=== PATIENT | female | born 1950 | race Caucasian/White ===

== ENCOUNTER 2016-10-24 16:10 | Inpatient (IN) | payer MEDICARE ==
[~2016-10-24] VITALS: Ht 167.6 cm; Wt 91.2 kg
[2016-11-04] MEDS ORDERED: ceFAZolin 2 GM PREMIX 50 ML IV SCH (06:15)
[2016-11-04] MEDS ORDERED: METOPROLOL TARTRATE 25 MG TAB PO PRN (06:15)
[2016-11-04] MEDS ORDERED: SODIUM CHLORID 0.9% 500 ML IV PRN (06:15)
[2016-11-04] MEDS ORDERED: CHLORHEXIDINE GLUCONATE 2 % 1 PACK (2 CLOTHS) TOPICAL PRN (06:15)
[2016-11-04] MEDS ORDERED: INSULIN HUMAN REGULAR 1,000 UNITS/10 ML VIAL SQ PRN (06:15)
[2016-11-04] MEDS ORDERED: LACTATED RINGER'S 1000 ML IV PRN (06:15)
[2016-11-04] MEDS ORDERED: POVIDONE IODINE 5% (ANTISEPSIS KIT) 4 APPLICATIONS EACH NARE PRN (06:15)
[2016-11-04 06:28] VITALS: BP_SYST 133; BP_SYST 151; BP_DIAS 70; BP_DIAS 78; PULSE 69; RESP 18; TEMP 97.8; O2SAT 98
[2016-11-04 06:58] LABS: INTERNATIONAL NORMALIZED RATIO 1.1 RATIO; PROTHROMBIN TIME - PATIENT 11.9 SEC (9.8-11.6)
[2016-11-04] MEDS ORDERED: SUGAMMADEX SODIUM 200 MG/2 ML VIAL IV PUSH ONE ×2 (07:21)
[2016-11-04] MEDS ORDERED: DEXAMETHASONE SOD PHOS 4 MG/ML VIAL ONE (07:37)
[2016-11-04] MEDS ORDERED: MIDAZOLAM HCL 2 MG/2 ML VIAL ONE (07:37)
[2016-11-04] MEDS ORDERED: NORMOSOL R INJ 2,000 ML IV ONE (12:00)
[2016-11-04] MEDS ORDERED: ePHEDrine/NS 25 MG/5 ML SYR IV ONE (12:00)
[2016-11-04] MEDS ORDERED: ONDANSETRON HCL 4 MG/2 ML VIAL IV PUSH ONE (12:00)
[2016-11-04] MEDS ORDERED: PHENYLEPHRINE HCL 10 MG/ML VIAL IV ONE (12:00)
[2016-11-04] MEDS ORDERED: IOHEXOL 350 MG/ML 50 ML BTL (for RAD DIAG) OTHER ONE (12:00)
[2016-11-04] MEDS ORDERED: PROPOFOL 200 MG/20 ML AMP IV ONE (12:00)
[2016-11-04] MEDS ORDERED: fentaNYL CITRATE 250 MCG/5 ML AMP ONE (12:08)
[2016-11-04] MEDS: SODIUM CHLOR 0.9% 1000 ML INJ 1,000 ML IV SCH ×2 (12:15→22:21)
[2016-11-04] MEDS ORDERED: DO NOT ADM ANY ANTICOAGULANT DRUGS PRN (12:47)
[2016-11-04] MEDS: ACETAMINOPHEN 1000 MG/100 ML VIAL IV SCH ×2 (13:16→22:16)
[2016-11-04 13:17] LABS: AUTOMATED NEUTROPHIL # 8.9 TH/MM3 (1.8-7.7); BASOPHIL % 0.2 % (0.0-2.0); HEMATOCRIT 40.7 % (35.0-46.0); HEMO FLAGS DIFF FINAL; LYMPH % 5.4 % (9.0-44.0); LYMPHOCYTE # 0.5 TH/MM3 (1.0-4.8); MEAN CORPUSCULAR HEMOGLOBIN 32.1 PG (27.0-34.0); MEAN CORPUSCULAR HGB CONC 33.8 % (32.0-36.0); NEUT % 93.4 % (16.0-70.0); PLATELET COUNT 197 TH/MM3 (150-450); RED BLOOD COUNT 4.28 MIL/MM3 (4.00-5.30); RED CELL DISTRIBUTION WIDTH 12.9 % (11.6-17.2); WHITE BLOOD COUNT 9.5 TH/MM3 (4.0-11.0)
[2016-11-04 13:42] LABS: BICARBONATE 21.8 MEQ/L (21.0-32.0)
[2016-11-04 13:56] LABS: CALCIUM-PROTEIN CORRECTED 7.6 MG/DL (8.5-10.1)
[2016-11-04] MEDS: PANTOPRAZOLE SODIUM 40 MG VIAL IV PUSH SCH (15:00)
[2016-11-04] MEDS ORDERED: *ONDANSETRON 4 MG VIAL PERIprocedural Use ONLY ONE (15:10)
--- NOTE | 2016-11-04 17:43 | RADRPT ---
EXAM DATE/TIME: 11/04/2016 08:52 [place] COMPARISON: No previous studies available for comparison. INDICATIONS : Stent placement right side done in or MEDICAL HISTORY : None. SURGICAL HISTORY : None. ENCOUNTER: Initial ACUITY: 1 day PAIN SCORE: Non-responsive. LOCATION: Right Abdomen. FINDINGS: A single digital image was recorded digitally operating room using C-arm after instillation of contra st into a dilated collecting system of the right kidney via stent. CONCLUSION: Intraoperative image. Hayder Berrios MD on November 04, 2016 at 17:41 Board Certified Radiologist. This report was verified electronically.
[2016-11-04] MEDS ORDERED: POTASSIUM CHLORIDE 20 MEQ CONTROLLED RELEASE TAB PO ONE (18:00)
[2016-11-05] VITALS (8 sets, daily range): BP systolic 104–170; BP diastolic 52–70; PULSE 74–95; RESP 16–20; TEMP 96.1–98.4; O2SAT 92–95
[2016-11-05] MEDS: ACETAMINOPHEN 1000 MG/100 ML VIAL IV SCH ×4 (02:39→19:56)
[2016-11-05] MEDS: SODIUM CHLOR 0.9% 1000 ML INJ 1,000 ML IV SCH ×2 (08:15→18:15)
[2016-11-05 08:35] LABS: POTASSIUM 3.6 MEQ/L (3.5-5.1)
[2016-11-05] MEDS: KETOROLAC TROMETHAMINE 30 MG/ML (IVP) VIAL IV PUSH PRN (08:36)
--- NOTE | 2016-11-05 13:04 | HHI.PR ---
Subjective Patient symptoms today vomited x 2 this morning. Denies pain. Denies flatus. Denies fevers. Has bladder spasms. Objective Vital Signs Vital Signs Date Time Temp Pulse Resp B/P Pulse Ox O2 Delivery O2 Flow Rate FiO2 11/05/16 08:06 94 21 11/05/16 08:00 97.6 76 20 135/64 94 11/05/16 04:05 98.1 80 16 110/57 95 11/05/16 00:05 98.4 95 16 104/52 95 11/04/16 21:10 98.1 93 20 116/64 95 Nasal Cannula 2 11/04/16 21:00 93 20 116/64 95 Nasal Cannula 2 11/04/16 20:00 95 16 123/65 96 Nasal Cannula 2 11/04/16 19:00 96 16 126/66 96 Nasal Cannula 2 11/04/16 18:00 96 16 114/66 95 Nasal Cannula 2 11/04/16 17:00 100 16 125/67 96 Nasal Cannula 2 11/04/16 16:00 98 16 148/80 98 Nasal Cannula 2 11/04/16 15:00 95 16 143/69 96 Nasal Cannula 2 11/04/16 14:00 93 16 120/63 93 Nasal Cannula 2 11/04/16 13:30 92 16 119/60 94 Nasal Cannula 2 11/04/16 13:15 97 16 136/70 93 Nasal Cannula 2 Intake & Output 11/05/16 11/05/16 07:00 19:00 Intake Total 325 ml Output Total 330 ml Balance -5 ml Intake Oral 120 ml IV Total 205 ml Output Urine Total 330 ml # Voids 0 # Bowel Movements 0 Result Diagram: 11/04/16 1301 11/05/16 0721 Objective Remarks NAD. a/O x 3 RRR CTAB abd soft, appropriately tender to palpation, ND. inc c/d/i. No pertioneal signs. Abrue pink but clear Ext NT. no c/c/e Medications and IVs Current Medications Medications (Trade) Dose Ordered Sig/Arleen Route Start Time Stop Time Status Last Admin (NS 1000 ml Inj) 1,000 ml @ 100 mls/hr Q10H IV 11/04/16 12:15 11/05/16 08:15 (Roxicodone) 5 mg Q4H PRN PO 11/04/16 12:15 (Roxicodone) 10 mg Q6H PRN PO 11/04/16 12:15 Acetaminophen 1000 mg 1,000 mg Q6H IV 11/04/16 14:00 11/05/16 08:35 (Ancef Inj/NS Inj) 100 ml @ 200 mls/hr Q8H IV 11/04/16 16:00 11/05/16 08:36 (Zofran Inj) 4 mg Q6HR PRN IV PUSH 11/04/16 12:15 (Protonix Inj) 40 mg Q24H IV PUSH 11/04/16 15:00 11/04/16 15:00 (Toradol Inj) 15 mg Q6H PRN IV PUSH 11/04/16 12:15 11/09/16 12:14 11/05/16 08:36 Assessment and Plan Assessment and Plan POD #1 s/p cystoscopy, right ureteral stent insertion, pyelolithotomy, robotic pyeloplasty -Clear liquid diet -Hgb stable. -d/c ancef. Nicotine patch. -Ambulate -GI/DVT prophylaxis -check JAMIL Creatinine -D/C Kevon Dickerson A.M., MD Nov 05, 2016 13:04
[2016-11-05] MEDS ORDERED: COLA100C3 PO (13:05)
[2016-11-05] MEDS ORDERED: PERC5TAB12 PO (13:05)
[2016-11-05] MEDS: PANTOPRAZOLE SODIUM 40 MG VIAL IV PUSH SCH (15:37)
[2016-11-05] MEDS: DOCUSATE SODIUM 100 MG CAP PO SCH ×2 (15:37→21:00)
[2016-11-05] MEDS: NICOTINE 21 MG/24 HR PATCH T-DERMAL SCH (15:37)
[2016-11-05] MEDS: ONDANSETRON HCL 4 MG/2 ML VIAL IV PUSH PRN (19:48)
[2016-11-05] MEDS: REMOVE OLD PATCH T-DERMAL SCH (19:58)
[2016-11-06 00:20] VITALS: BP 129/68; PULSE 78; RESP 16; TEMP 97.7; O2SAT 93
[2016-11-06] MEDS: ACETAMINOPHEN 1000 MG/100 ML VIAL IV SCH ×4 (03:48→21:39)
[2016-11-06] MEDS: SODIUM CHLOR 0.9% 1000 ML INJ 1,000 ML IV SCH ×2 (03:49→14:15)
[2016-11-06 04:20] VITALS: BP 134/62; PULSE 78; RESP 16; TEMP 96.8; O2SAT 94
[2016-11-06 08:00] VITALS: BP 152/75; PULSE 75; RESP 20; TEMP 97.1; O2SAT 92
[2016-11-06] MEDS: KETOROLAC TROMETHAMINE 30 MG/ML (IVP) VIAL IV PUSH PRN (09:01)
[2016-11-06] MEDS: DOCUSATE SODIUM 100 MG CAP PO SCH ×2 (09:01→21:38)
[2016-11-06] MEDS: ONDANSETRON HCL 4 MG/2 ML VIAL IV PUSH PRN (09:01)
[2016-11-06] MEDS: NICOTINE 21 MG/24 HR PATCH T-DERMAL SCH (09:02)
[2016-11-06 12:00] VITALS: BP 173/80; PULSE 83; RESP 20; TEMP 97.4; O2SAT 93
[2016-11-06] MEDS: PANTOPRAZOLE SODIUM 40 MG VIAL IV PUSH SCH (15:24)
--- NOTE | 2016-11-06 16:16 | MP ---
cc: HILLARY MASON MD Corrected Copy: 11/11/16 DATE OF SURGERY: 11/04/2016 PREOPERATIVE DIAGNOSIS: 1. Right ureteropelvic junction obstruction. 2. Right renal stone. 3. Left renal mass. POSTOPERATIVE DIAGNOSIS: 1. Right ureteropelvic junction obstruction. 2. Right renal stone. 3. Left renal mass. OPERATION: 1. Cystoscopy. 2. Laparoscopic pyelolithotomy. 3. Right robotic pyeloplasty. SURGEON: Jackelyn. ANESTHESIA General COMPLICATIONS None. PREOPERATIVE ANTIBIOTICS 1. Ancef 2 grams IV drainage DRAINS: 1. A 6 X 26 double J, right ureteral stent. 2. A 10-Yemeni JAMIL drain to bulb suction. 3. 20 Yemeni Abreu catheter to gravity drainage. FLUIDS: 2200 ml Crystalloids. BLOOD LOSS 50 Ml's. SPECIMENS: Right renal stone for chemical analysis. CONDITION: Stable to recovery. INDICATIONS The patient is a 66-year-old female with a known right UPJ obstruction and right renal stone presents today for definitive treatment. 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 Prior to treatment of her renal mass which possibly was on the left nephrectomy and decided to proceed with optimizing renal function and fixing her right kidney obstruction. I also discussed by removing the stone at the time of surgery. After the risks, benefits and alternatives were explained. The patient wishes to proceed. PROCEDURE IN DETAIL The patient identified, brought back to the operating room, was laid supine on the operating room table. Proper time-out was performed under anesthesiology the patient was induced under general aesthetic, p.o. antibiotics in form of Ancef 2 grams IV were given one hour from start of procedure. The patient then placed in dorsolithotomy position, prepped in normal sterile fashion. A rigid cystoscope was then passed into her bladder per urethra without difficulty. A dominguez cystoscopy done which showed no evidence of any bladder tumor stones, diverticula or trabeculations. Both ureteral orifices were identified, appear normal in anatomical location. At this time a 5-Yemeni open ended ureteral catheter was gently inserted into the radial ureteral orifice. A right retrograde pyelogram was performed which showed a widely distended pelvis with and narrow UPJ consistent with the UPJ obstruction also saw the defect in the midportion of her right kidney consistent with the known renal stone. At this time a 6 x 26 stent was then inserted up into the right kidney. The position was confirmed by fluoroscopy. The bladder was then drained. A three-way 20-Yemeni Abreu catheter was inserted this concludes the first portion the procedure. The patient then repositioned and prepped, draped in normal sterile surgical fashion, She was placed in the left lateral decubitus position with all pressure points padded with right side up. A stab incision was made just superior and lateral to her umbilicus. Pneumoperitoneum was achieved with a varus needle. Under direct visualization I inserted 12 mm camera port. The abdominal cavity was inspected, which showed no evidence of intra-abdominal injury. The remaining ports were then placed under direct visualization. This include two 8 mm visitor information assistant robotic ports that were triangulated off a 12 mm camera port and a 12 mm visitor information assistant port, inferior to umbilicus in the midline. The robot was then brought into position. I began by reflecting the colon medially and by taking down the white line of Toldt. The kidney and renal pelvis was easily seen. At this time I then identified the right ureter. I then followed the ureter to the junction of the renal pelvis. The renal pelvis, had been medically drained by the insertion of the stent. The pelvis was carefully dissected off, this exposed the UPJ. A Reji needle was then used percutaneously for retraction into the renal pelvis. At this time I divided the ureter at the level of the renal pelvis. There is no crossing vessel, this area appeared to be stenotic. I then opened up and the renal pelvis using a Prograsp I was able to locate the stone in the midportion of the kidney and removed it in its entirety. With the stent in place I then widely spatulated the proximal ureter. A watertight anastomosis was then performed to the renal pelvis with 4-0 Monocryl suture. No evidence of urine leak was identified. At this time 1 gram of Irene was then used for hemostatic purposes. The kidney appeared to be pink and viable at the end of the case. The pneumoperitoneum was dropped on 7 mmHg. There is no evidence of any bleeding. At this time a 10-Yemeni JAMIL drain was then placed through the left-hand robotic port, it was secured with a 3-0 nylon. All ports were removed under direct visualization and skin incisions were closed with Monocryl and reinforced with Dermabond. This concluded procedure. The patient was extubated and sent to the Recovery Room in stable condition. She will be transferred for routine postoperative care. MD FELIPE Hernadez/brandee /9:13 AM /8:30 AM
[2016-11-06 16:40] VITALS: BP 151/79; PULSE 74; RESP 20; TEMP 97; O2SAT 95
--- NOTE | 2016-11-06 17:46 | HHI.PR ---
Subjective Patient symptoms today No issues overnight. Patient has tolerated diet well today, no N/V. Pain well controlled. No fevers. Catheter has been removed and she is voiding well Objective Vital Signs Vital Signs Date Time Temp Pulse Resp B/P Pulse Ox O2 Delivery O2 Flow Rate FiO2 11/06/16 16:40 97.0 74 20 151/79 95 11/06/16 12:00 97.4 83 20 173/80 93 11/06/16 08:00 97.1 75 20 152/75 92 11/06/16 04:20 96.8 78 16 134/62 94 11/06/16 00:20 97.7 78 16 129/68 93 11/05/16 19:39 96.1 74 18 170/70 92 11/05/16 18:30 93 21 Intake & Output 11/06/16 11/06/16 07:00 19:00 Intake Total 360 ml 1965 ml Output Total 2910 ml 3 ml Balance -2550 ml 1962 ml Intake Oral 360 ml 460 ml IV Total 1505 ml Output Urine Total 2900 ml Drainage Total 10 ml 3 ml # Voids 3 # Bowel Movements 0 0 Result Diagram: 11/04/16 1301 11/05/16 0721 Objective Remarks NAD. a/O x 3 abd soft, nontender, inc c/d/i. Ext NT. no c/c/e JAMIL drain with minimal output Medications and IVs Current Medications Medications (Trade) Dose Ordered Sig/Arleen Route Start Time Stop Time Status Last Admin (NS 1000 ml Inj) 1,000 ml @ 100 mls/hr Q10H IV 11/04/16 12:15 11/06/16 14:15 (Roxicodone) 5 mg Q4H PRN PO 11/04/16 12:15 (Roxicodone) 10 mg Q6H PRN PO 11/04/16 12:15 (Ofirmev Inj) 1,000 mg Q6H IV 11/04/16 14:00 11/06/16 15:26 (Zofran Inj) 4 mg Q6HR PRN IV PUSH 11/04/16 12:15 11/06/16 09:01 (Protonix Inj) 40 mg Q24H IV PUSH 11/04/16 15:00 11/06/16 15:24 (Toradol Inj) 15 mg Q6H PRN IV PUSH 11/04/16 12:15 11/09/16 12:14 11/06/16 09:01 (Habitrol 21 Mg Patch.24 Hr) 1 patch DAILY T-DERMAL 11/05/16 13:00 11/06/16 09:02 Miscellaneous Information 1 HS T-DERMAL 11/05/16 21:00 11/05/16 19:58 (Colace) 100 mg BID PO 11/05/16 13:15 11/06/16 09:01 Assessment and Plan Assessment and Plan S/P cystoscopy, right ureteral stent insertion, pyelolithotomy, robotic pyeloplasty -Continue regular diet -PO pain medication -Ambulate, SCDs -JAMIL with minimal output, JAMIL Cr 0.6, consistent with serum -Voiding well freely -Likely discharge tomorrow Nima Drake MD Nov 06, 2016 17:46
[2016-11-06 20:05] VITALS: BP 146/72; PULSE 72; RESP 17; TEMP 97; O2SAT 95
[2016-11-06] MEDS: REMOVE OLD PATCH T-DERMAL SCH (21:00)
[2016-11-07 00:05] VITALS: BP 145/77; PULSE 74; RESP 17; TEMP 97; O2SAT 95
[2016-11-07] MEDS: SODIUM CHLOR 0.9% 1000 ML INJ 1,000 ML IV SCH ×2 (00:15→09:27)
[2016-11-07] MEDS: ACETAMINOPHEN 1000 MG/100 ML VIAL IV SCH (02:52)
[2016-11-07 04:05] VITALS: BP 153/77; PULSE 75; RESP 17; TEMP 97.3; O2SAT 95
[2016-11-07] MEDS ORDERED: oxyCODONE/ACETAMINOPHEN 5 MG/325 MG TAB PO PRN ×2 (05:00)
[2016-11-07 08:00] VITALS: BP 139/78; PULSE 76; RESP 18; TEMP 97; O2SAT 97
[2016-11-07] MEDS: NICOTINE 21 MG/24 HR PATCH T-DERMAL SCH (09:00)
[2016-11-07] MEDS: DOCUSATE SODIUM 100 MG CAP PO SCH (09:27)
[2016-11-07 12:00] VITALS: BP 147/91; PULSE 69; RESP 18; TEMP 97; O2SAT 96
--- NOTE | 2016-11-07 12:50 | HHI.PR ---
Subjective Patient symptoms today doing well. pain controlled. tolerating regular diet. nausea resolved. BM x 2. Wants to go home. Objective Vital Signs Vital Signs Date Time Temp Pulse Resp B/P Pulse Ox O2 Delivery O2 Flow Rate FiO2 11/07/16 08:00 97.0 76 18 139/78 97 11/07/16 04:05 97.3 75 17 153/77 95 11/07/16 00:05 97.0 74 17 145/77 95 11/06/16 20:05 97.0 72 17 146/72 95 11/06/16 16:40 97.0 74 20 151/79 95 Intake & Output 11/07/16 11/07/16 07:00 19:00 Intake Total 360 ml Output Total 5 ml Balance 355 ml Intake Oral 360 ml Drainage Total 5 ml # Voids 2 # Bowel Movements 1 Result Diagram: 11/04/16 1301 11/05/16 0721 Objective Remarks NAD. a/O x 3 abd soft, nontender, inc c/d/i. Ext NT. no c/c/e JAMIL drain with minimal output Medications and IVs Current Medications Medications (Trade) Dose Ordered Sig/Arleen Route Start Time Stop Time Status Last Admin (NS 1000 ml Inj) 1,000 ml @ 100 mls/hr Q10H IV 11/04/16 12:15 11/07/16 09:27 (Zofran Inj) 4 mg Q6HR PRN IV PUSH 11/04/16 12:15 11/06/16 09:01 (Protonix Inj) 40 mg Q24H IV PUSH 11/04/16 15:00 11/06/16 15:24 (Habitrol 21 Mg Patch.24 Hr) 1 patch DAILY T-DERMAL 11/05/16 13:00 11/06/16 09:02 Miscellaneous Information 1 HS T-DERMAL 11/05/16 21:00 11/05/16 19:58 (Colace) 100 mg BID PO 11/05/16 13:15 11/07/16 09:27 (Percocet 5-325 Mg) 2 tab Q4H PRN PO 11/07/16 05:00 (Percocet 5-325 Mg) 1 tab Q4H PRN PO 11/07/16 05:00 Assessment and Plan Assessment and Plan S/P cystoscopy, right ureteral stent insertion, pyelolithotomy, robotic pyeloplasty, POD#3 -d/c drain -d/c home today. F/U in 1 week. Kevon Hayden MD Nov 07, 2016 12:50
--- NOTE | 2016-11-07 12:54 | HHI.DS ---
Discharge Summary Admission Date Nov 04, 2016 at 05:26 Discharge Date: Nov 07, 2016 Admitting Diagnosis Procedures 1. Right Robotic Pyeloplasty 2. Pyelolithotomy 3. cystoscopy, right retrograde pyelogram, right ureteral stent insertion CBC/BMP: 11/04/16 1301 11/05/16 0721 Significant Findings Laboratory Tests Test 11/04/16 11/04/16 11/05/16 13:01 13:07 07:21 Neutrophils (%) (Auto) 93.4 % (16.0-70.0) Lymphocytes (%) (Auto) 5.4 % (9.0-44.0) Neutrophils # (Auto) 8.9 TH/MM3 (1.8-7.7) Lymphocytes # (Auto) 0.5 TH/MM3 (1.0-4.8) Potassium Level 3.0 MEQ/L (3.5-5.1) Chloride Level 113 MEQ/L 112 MEQ/L (98-107) (98-107) Blood Urea Nitrogen 6 MG/DL (7-18) Estimat Glomerular Filtration 81 ML/MIN (>89) Rate Random Glucose 155 MG/DL (74-106) Calcium Level 6.8 MG/DL 8.1 MG/DL (8.5-10.1) (8.5-10.1) Protein Corrected Calcium 7.6 MG/DL (8.5-10.1) Total Protein 5.5 GM/DL (6.4-8.2) Hospital Course 66 yo female was admitted following a Right Robotic Pyeloplasty. She had post operative nausea x 24 hours but resolved on its own. Catheter was removed on POD # 2 and was able to void on her own. Her JAMIL Creatinine was serum, indicating there was no evidence of a leak. It had minimal output. It was removed prior to d/c. She tolerated a regular diet and had 2 BMs. She was discharged home on POD # 3 and scheduled to follow up in 1 week. The ureteral stent remains in place for 6 weeks to allow proper healing. Pt Condition on Discharge: Good Discharge Disposition: Discharge Home Discharge Instructions DIET: Follow Instructions for: As Tolerated, No Restrictions Activities you can perform: Full Weight Bearing, Shower Only-No Bath Activities to avoid: Strenuous Activity, Bathing Additional Activity Instructio: No heavylifting greater than 15 lbs x 4 weeks New Medications: Docusate Sodium (Colace) 100 Mg Cap 100 MG PO BID Constipation Days 14 Ref 0 CAP Oxycodone-Acetaminophen (Percocet) 5-325 mg Tab 2 TAB PO Q4H PRN PAIN #30 Ref 0 TAB Kevon Hayden MD Nov 07, 2016 12:54
== END 2016-11-07 14:51 | disposition home or self-care (01) | DRG 660 ==
LOC: HSDI 11-04 05:26 → N06B 11-04 21:33
PROVIDERS: ADMIT Urology; ATTEND Urology
PROC: BT1D1ZZ Fluoroscopy of Right Kidney, Ureter and Bladder using Low Osmolar Contrast (ICD-10-PCS; 2016-11-04)
PROC: 0T768DZ Dilation of Right Ureter with Intraluminal Device, Via Natural or Artificial Opening Endoscopic (ICD-10-PCS; 2016-11-04)
PROC: 8E0W4CZ Robotic Assisted Procedure of Trunk Region, Percutaneous Endoscopic Approach (ICD-10-PCS; 2016-11-04)
PROC: 0TC34ZZ Extirpation of Matter from Right Kidney Pelvis, Percutaneous Endoscopic Approach (ICD-10-PCS; principal; 2016-11-04 07:45)
PROC: 0TQ34ZZ Repair Right Kidney Pelvis, Percutaneous Endoscopic Approach (ICD-10-PCS; 2016-11-04 07:45)
DX: N20.0 Calculus of kidney (principal); C64.2 Malignant neoplasm of left kidney, except renal pelvis; N13.5 Crossing vessel and stricture of ureter without hydronephrosis; F17.210 Nicotine dependence, cigarettes, uncomplicated
CPT/HCPCS: 74000; 74420; 76000; 80048; 82370; 82570; 84155; 85025; 85610; 86850; 86900; 86901; 86920; 88300; 94150; C2617; C9113; J0131; J0690; J1100; J1885; J2250; J2370; J2405; J3010; J7030; J7120; Q9967